=== PATIENT | female | born 1965 | race Caucasian/White ===

== ENCOUNTER 2021-08-29 11:48 | Emergency (ER) | payer MEDICAID ==
[~2021-08-29] VITALS: Ht 162.6 cm; Wt 61.2 kg
[2021-08-29 11:53] VITALS: BP_SYST 124
--- NOTE | 2021-08-29 11:54 | NUR ---
Patient to ER bed 1 to gown for evaluation. Side rails up. Report given to Miranda VEGA.
[2021-08-29] MEDS ORDERED: NACL 0.9% 1,000 ML IV ONE (12:00)
--- NOTE | 2021-08-29 12:00 | NUR ---
PT BIB [facility] FIRE C/O SYNCOPAL EPISODE. PT GCS 15. DENIES PAIN OR DISCOMFORT. NORMOTENSIVE AT THIS TIME. NSR ON MONITOR. IV TO LEFT AC #18GUAGE STARTED TALENT COORDINATOR. INFUSING NS BOLUS AT THIS TIME. TOLERATING WELL.
[2021-08-29 12:18] LABS: BASOPHILS % (AUTO) 0.5 % (0.0-2.0); EOSINOPHILS # (AUTO) 0.1 K/uL (0.0-0.4); EOSINOPHILS % (AUTO) 1.5 % (0.0-4.0); HEMATOCRIT 36.9 % (36-48); HEMOGLOBIN 12.1 g/dL (12.0-16.0); LYMPHOCYTES # (AUTO) 1.3 K/uL (1.0-5.5); LYMPHOCYTES % (AUTO) 19.3 % (20.5-51.5); MEAN CORPUSCULAR HEMOGLOBIN 29 pg (27-31); MEAN CORPUSCULAR HGB CONC 33 % (32-36); MEAN CORPUSCULAR VOLUME 88 fL (79.0-98.0); MONOCYTES # (AUTO) 0.9 K/uL (0.0-1.0); MONOCYTES % (AUTO) 12.8 % (1.7-9.3); NEUTROPHILS # (AUTO) 4.6 K/uL (1.8-7.7); NEUTROPHILS % (AUTO) 65.9 % (40.0-70.0); PLATELET COUNT (AUTO) 309 K/uL (130-430); RED CELL DISTRIBUTION WIDTH 13.8 % (9.0-15.0)
[2021-08-29 12:35] LABS: CALCIUM 9.7 mg/dL (8.4-11.0); CREATININE 0.95 mg/dL (0.55-1.30); POTASSIUM 4.5 mmol/L (3.5-5.1)
[2021-08-29 12:41] LABS: ALBUMIN 3.6 g/dL (3.4-4.8); TOTAL BILIRUBIN 0.9 mg/dL (0.0-1.0)
[2021-08-29 15:31] VITALS: BP_SYST 124
--- NOTE | 2021-08-29 15:31 | NUR ---
pt daughter at bedside, pt and daughter verbalize dc instructions. iv removed no active bleeding. no acute distress ntoed. stable on dc
== END 2021-08-29 15:31 | disposition home or self-care (01) ==
LOC: SED 11:48
DX: R55 Syncope and collapse (principal); I10 Essential (primary) hypertension
CPT/HCPCS: 36415; 70450; 71045; 76376; 80053; 83880; 84484; 85025; 93005; 96360; 99285; J7030